=== PATIENT | female | born 1995 | race Caucasian/White ===

== ENCOUNTER 2021-09-14 10:00 | Emergency (ER) | payer MEDICAID, SELFPAY ==
[2021-09-14 11:19] LABS: UTC Strep Screen (Rapid) Negative (Negative)
[2021-09-14 11:24] VITALS: BP 125/83; PULSE 76; RESP 18; TEMP 36.6; O2SAT 100; BMI 17.2
--- NOTE | 2021-09-14 11:30 | HMH.EDUTC ---
[facility] [place] Clinical Impression: Acute viral syndrome Disposition: Left Against Medical Advice Condition on Discharge: Good Referrals: Provider,Referral, [Primary Care Provider] - Time of Disposition: 12:32 Medical Decision Making - Medical Records Medical records reviewed: No: I reviewed the patient's medical records. - Dario Inquiry Pt receiving controlled substance: No Vital Signs: 09/14/21 11:24 Temperature 98 F Temperature Source Oral Pulse Rate [Left] 76 Respiratory Rate 18 Blood Pressure [Right Arm] 125/83 Blood Pressure Mean [Right Arm] 97 02 Sat by Pulse Oximetry 100 - Lab Data Lab Results 09/14/21 11:18: Strep Scn Rapid Clinic Negative Orders (Tests/Meds): ORDERS Category Date Time Status Strep Screen Confirmation Stat Micro 09/14/21 11:18 Received Medical Decision Narrative: She left before evaluation and treatment could be completed. [facility] [place] - General Stated complaint: cough, sore throat, chest congestion Time Seen by Provider: 09/14/21 11:30 Mode of Arrival: Ambulatory Source of Information: Patient Limitations: No Limitations Description of Symptoms (Recalled from Triage Doc. by RN): pt c/o SOA, cough, chest tightness, and a sore throat x2 days. HEENT Symptoms (Recalled from RN notes): Yes Resp Symptoms (Recalled from RN notes): Yes Skin Symptoms (Recalled from RN notes): No MS Symptoms (Recalled from RN notes): No Functional Status (Recalled from RN notes): wnl - History of Present Illness Provider Complaint: She c/o cough, chest congestion, body aches and feeling very bad since yesterday. She denies shortness of breath. - Related Data Allergies Allergy/AdvReac Type Severity Reaction Status Date / Time BANANAS Allergy Intermediate ITCHING, Uncoded 07/07/17 15:00 SORES AROUND MOUTH - Worker's Comp Is this a Worker's Comp case?: No [facility] History - Hepatitis A Screen Drug use history?: No High risk sexual behaviors?: No History of sexually transmitted infection?: No Currently employed?: No Childcare worker?: No Do you have indoor plumbing?: Yes Do you have electricity?: Yes Attestation statement:: This patient has been screened for Hepatitis A risk factors. I have reviewed the patient's past medical history: Yes ROS Obtained: Yes All systems reviewed & no additional complaints - Constitutional Constitutional: Reports as per HPI - Eyes Eyes: Denies eye discharge - ENT Ears, Nose, Mouth, and Throat: Reports as per HPI - Cardiovascular Cardiovascular: Denies chest pain - Respiratory Respiratory: Reports chest congestion, Reports cough, Denies dyspnea, Denies stridor, Denies wheezing Physical Exam - General General appearance: alert, in no apparent distress - Head Head exam: atraumatic, normocephalic, normal inspection - Eye Eye exam: Present: normal appearance, PERRL, EOMI - ENT ENT exam: Present: normal exam, normal oropharynx, mucous membranes moist, TM's normal bilaterally, normal external ear exam - Neck Neck exam: Present: normal inspection, full ROM, trachea midline. Absent: meningismus, lymphadenopathy - Chest Chest inspection: Present: normal inspection, symmetric chest wall rise. Absent: tenderness - Respiratory Respiratory exam: Present: normal lung sounds bilaterally. Absent: respiratory distress - Cardiovascular Cardiovascular exam: Present: regular rate, normal rhythm. Absent: JVD - Abdominal Exam Abdominal exam: Present: soft, normal bowel sounds. Absent: distention, tenderness, guarding - Extremities Exam Extremities exam: Present: normal inspection, full ROM, normal capillary refill. Absent: calf tenderness - Back Exam Back exam: Present: normal inspection. Absent: tenderness - Neurological Exam Neurological exam: Present: alert, oriented X3 - Psychiatric Psychiatric exam: Present: normal affect, normal mood - Skin Skin exam: Present: warm, dry, intac
--- NOTE | 2021-09-14 11:32 | XR_ITS ---
PROCEDURE INFORMATION: Exam: XR Chest Exam date and time: 09/14/2021 11:32 AM Age: 26 years old Clinical indication: Shortness of breath; Additional info: SOA TECHNIQUE: Imaging protocol: XR of the chest. Views: 2 views. COMPARISON: No relevant prior studies available. FINDINGS: Lungs: No focal airspace disease. Pleural spaces: Unremarkable. No pleural effusion. No pneumothorax. Heart/Mediastinum: Cardiomediastinal silhouette is within normal limits. Bones/joints: Unremarkable. IMPRESSION: No acute cardiopulmonary abnormality.
[2021-09-14 12:34] VITALS: BP 125/83; PULSE 76; RESP 18; TEMP 36.6
== END 2021-09-14 12:35 | disposition left against medical advice (07) ==
PROVIDERS: Emergency Provider Nurse Practitioner Family
DX: Z53.21 Procedure and treatment not carried out due to patient leaving prior to being seen by health care provider (principal); B34.9 Viral infection, unspecified; R05.1 Acute cough
CPT/HCPCS: 71046; 87880

== ENCOUNTER 2022-02-19 19:44 | Emergency (ER) | payer MEDICAID, SELFPAY ==
[2022-02-19 20:08] LABS: UTC Strep Screen (Rapid) Negative (Negative)
[2022-02-19 20:12] VITALS: BP 119/75; PULSE 99; RESP 16; TEMP 36.7; O2SAT 100; BMI 17.2
--- NOTE | 2022-02-19 20:15 | HMH.EDUTC ---
[facility] [place] Impression: Viral syndrome Acute bronchitis Qualifiers: Bronchitis organism: unspecified organism Qualified Code(s): J20.9 - Acute bronchitis, unspecified Disposition: Home, Self-Care Condition on Discharge: Good Instructions: Acute Bronchitis, DI for Acute Bronchitis, DI for COVID-19 (Suspected or Confirmed ), Preventing the Spread of Coronavirus Discharge Instructions Additional Instructions: Drink plenty of fluids. Take tylenol or ibuprofen for pain or fever. Take the medications as directed. Follow up with your regular doctor. GO TO THE ER FOR ANY WORSENING SYMPTOMS Quarantine until you know the results of your covid-19 test. Notify your school or workplace of your results and follow their instructions regarding return to work/school. Prescriptions: Ondansetron [Zofran 4mg ODT] 4 mg PO Q8HP PRN #20 tab PRN Reason: Nausea Transmission Status: Received by [facility] #[id number] Benzonatate [Benzonatate 100mg cap] 100 mg PO TIDP PRN #30 cap PRN Reason: Cough Transmission Status: Received by [employer] #[id number] methylPREDNISolone [Medrol] 4 mg PO DIRECTED 6 Days #21 packet Transmission Status: Received by [employer] #[id number] Azithromycin [Z-Inocente 250mg Tab*] 250 mg PO UD DOSE PK #6 tab Transmission Status: Received by [employer] #[id number] Referrals: Provider,Referral, [Primary Care Provider] - Forms: Work/School Release Time of Disposition: 20:26 Medical Decision Making - Medical Records Medical records reviewed: No: I reviewed the patient's medical records. - Dario Inquiry Pt receiving controlled substance: No Vital Signs: 02/19/22 20:12 02/19/22 20:27 Temperature 98.0 F 98.0 F Temperature Source Oral Pulse Rate 99 H Pulse Rate [Left] 99 H Respiratory Rate 16 16 Blood Pressure 119/75 Blood Pressure [Right Arm] 119/75 Blood Pressure Mean [Right Arm] 89 02 Sat by Pulse Oximetry 100 - Lab Data Lab Results 02/19/22 19:57: Chlamy pneumoniae PCR Not detected, Adenovirus (PCR) Not detected, B. pertussis DNA (PCR) Not detected, Coronavirus OC43 (PCR) Not detected, Coronavirus HKU1 (PCR) Not detected, Coronavirus 229E (PCR) Not detected, SARS-CoV-2 (PCR) Not detected, Coronavirus NL63 (PCR) Not detected, Human Metapneumovir PCR Not detected, Influenza A (H1) PCR Not detected, Influ A (H1N1/09) PCR Not detected, Influenza A (H3) PCR Not detected, Influenza Type A (PCR) Not detected, Influenza Type B (PCR) Not detected, M. pneumoniae (PCR) Not detected, Parainfluenza 1 (PCR) Not detected, Parainfluenza 2 (PCR) Not detected, Parainfluenza 3 (PCR) Not detected, Parainfluenza 4 (PCR) Not detected, RSV (PCR) Not detected, Entero/Rhino (PCR) Detected A 02/19/22 20:06: Strep Scn Rapid Clinic Negative Orders (Tests/Meds): ORDERS Category Date Time Status Strep Screen Confirmation Stat Micro 02/19/22 20:06 [place]ceived [facility] [place] - General Stated complaint: COVID TEST, sore throat, body aches Time Seen by Provider: 02/19/22 20:15 Mode of Arrival: Ambulatory Source of Information: Patient Limitations: No Limitations Description of Symptoms (Recalled from Triage Doc. by RN): patient comes in for sore throat, chest tightness, cough. symptoms began this am. HEENT Symptoms (Recalled from RN notes): Yes Resp Symptoms (Recalled from RN notes): Yes Skin Symptoms (Recalled from RN notes): No MS Symptoms (Recalled from RN notes): No Functional Status (Recalled from RN notes): n/a - History of Present Illness Provider Complaint: She states that she has had chest congestion, sore throat, chills and malaise since this morning. - Related Data Previous Rx's Medication Instructions Recorded Azithromycin [Z-Inocente 250mg Tab*] 250 mg PO UD DOSE PK #6 tab 02/19/22 Benzonatate [Benzonatate 100mg 100 mg PO TIDP PRN #30 cap 02/19/22 cap] Ondansetron [Zofran 4mg ODT] 4 mg PO Q8HP PRN #20 tab 02/19/22 met
[2022-02-19 20:27] VITALS: BP 119/75; PULSE 99; RESP 16; TEMP 36.7
[2022-02-19 20:30] LABS: Adenovirus,PCR Not Detected (NotDetected); Bordetella Pertussis Not Detected (NotDetected); Chlamydophila Pneumoniae, PCR Not Detected (NotDetected); Coronavirus 19, PCR Not Detected (NotDetected); Coronavirus 229E Not Detected (NotDetected); Coronavirus NL63 Not Detected (NotDetected); Coronavirus OC43 Not Detected (NotDetected); Coronovirus HKU1,PCR Not Detected (NotDetected); Human Metapneumovirus Not Detected (NotDetected); Influenza A, PCR Not Detected (NotDetected); Influenza AH1, 2009 Not Detected (NotDetected); Influenza AH1, PCR Not Detected (NotDetected); Influenza AH3,PCR Not Detected (NotDetected); Influenza B, PCR Not Detected (NotDetected); Mycoplasma Pneumoniae, PCR Not Detected (NotDetected); Parainfluenza 1, PCR Not Detected (NotDetected); Parainfluenza 2, PCR Not Detected (NotDetected); Parainfluenza 3, PCR Not Detected (NotDetected); Parainfluenza 4, PCR Not Detected (NotDetected); Respiratory Syncytial Virus Not Detected (NotDetected)
[2022-02-19 21:58] LABS: Rhinovirus/Enterovirus Detected (NotDetected)
== END 2022-02-19 20:32 | disposition home or self-care (01) ==
PROVIDERS: Emergency Provider Nurse Practitioner Family
DX: B34.9 Viral infection, unspecified (principal); J20.9 Acute bronchitis, unspecified
CPT/HCPCS: 87581; 87632; 87798; 87880; 99212; C9803; G0463; U0003; U0005

== ENCOUNTER → 2022-06-30 13:30 | Outpatient (CLI) | payer MEDICAID, SELFPAY ==
--- NOTE | 2022-06-30 13:34 | US_ITS ---
FINAL REPORT CLINICAL HISTORY: pt. has history of dermoid cyst FINDINGS: Transvaginal sonographic images of the pelvis were obtained. The uterus measures 7 x 4 x 5 cm. There is an IUD in the uterus. The endometrium measures 5 mm, which is within normal limits. No uterine mass is identified. The right ovary measures 4.4 cm in length . Multiple follicles are present. The left ovary is surgically absent. There is a small amount of pelvic free fluid which may be physiologic or reactive. IMPRESSION: Multiple follicles the right ovary. Left ovary surgically absent. Small amount of pelvic free fluid which may be physiologic or reactive. Reviewed, Interpreted and Dictated by Collin Art III, MD Transcribed by Lidya Dixon Authenticated and [facility]
== END ==
PROVIDERS: PCP Emergency Medicine; Visit Provider Obstetrics & Gynecology
DX: R10.2 Pelvic and perineal pain (principal); R10.31 Right lower quadrant pain
CPT/HCPCS: 76830

== ENCOUNTER → 2022-08-16 14:37 | Outpatient (CLI) | payer MEDICAID, SELFPAY ==
[2022-08-16 15:23] LABS: Basophils # 0.1 K/mm3 (0-0.2); Basophils % 0.8 % (0.1-2.0); Eosinophils # 0.1 K/mm3 (0.0-0.4); Eosinophils % 0.5 % (0.1-12.0); Hematocrit 45.2 % (37.0-47.0); Hemoglobin 14.7 g/dL (12.2-16.2); Lymphocytes # 1.2 K/mm3 (0.7-4.5); Lymphocytes % 10.5 % (10-50); Mean Corpuscular HGB Conc 32.6 g/dL (31.8-35.4); Mean Corpuscular Hemoglobin 30.4 pg (27.0-31.2); Mean Corpuscular Volume 93.2 fl (81-99); Monocytes # 0.2 K/mm3 (0.1-1.0); Monocytes % 1.9 % (1.7-9.3); Neutrophils # 9.4 K/mm3 (1.8-7.8); Neutrophils % 86.2 % (37.0-80.0); Platelet Count 232 K/mm3 (142-424); Red Blood Count 4.85 M/mm3 (4.20-5.40); Red Cell Distribution Width 12.9 % (11.5-17.5); White Blood Count 10.9 K/mm3 (4.8-10.8)
[2022-08-16 15:25] LABS: MANUAL DIFFERENTIAL MANUAL DIFFERENTIAL (MANUAL DIFF)
[2022-08-16 15:29] LABS: Chloride 105 mmol/L (98-107); Sodium 143 mmol/L (136-145)
[2022-08-16 15:31] LABS: Alanine Aminotransferase 17 U/L (12-78); Aspartate Amino Transferase 24 U/L (14-36); Blood Urea Nitrogen 13 mg/dl (7-17); Estimated Glomerular Filt Rate 67 ml/min (>60); GFR (African American) 80 ML/MIN (>60)
[2022-08-16 15:32] LABS: Albumin Level 4.6 g/dl (3.5-5.0); Albumin/Globulin Ratio 1.6 (1.1-1.8); Alkaline Phosphatase 64 U/L (38-126); Bilirubin,Total 0.4 mg/dl (0.2-1.3); Calcium 8.7 mg/dl (8.4-10.2); Carbon Dioxide 30 mmol/L (22.0-30.0); Globulin 2.9 g/dL (1.3-3.2); Glucose 77 mg/dl (74-100); Total Protein,Serum 7.5 g/dl (6.3-8.2)
[2022-08-16 15:56] LABS: HCG,Quantitative < 2 mIU/ml (0-5.42)
[2022-08-16 17:05] LABS: Lymphocytes % 12 % (10-50); Neutrophils % 88 % (42-76); Total Cells Counted 100
[2022-08-16 17:06] LABS: Platelet Estimate Normal; RBC Morphology Normal
== END ==
PROVIDERS: PCP Emergency Medicine; Visit Provider Obstetrics & Gynecology
DX: Z01.812 Encounter for preprocedural laboratory examination (principal); R10.2 Pelvic and perineal pain
CPT/HCPCS: 36415; 80053; 84702; 85007; 85025

== ENCOUNTER 2022-08-18 07:10 | Day surgery (SDC) | payer MEDICAID, SELFPAY ==
[2022-08-14 12:50] VITALS: BMI 18.6
[2022-08-18] VITALS (14 sets, daily range): BP systolic 102–128; BP diastolic 59–80; PULSE 52–89; RESP 16–18; TEMP 36.6–43; O2SAT 96–100
--- NOTE | 2022-08-18 08:05 | P.PN_ITS ---
[facility] Disclaimer: The information contained in this section may have been updated after the patient was seen, as this information can be updated by other users. Medical History FANNIE III (cervical intraepithelial neoplasia III) History of anxiety History of depression History of irritable bowel syndrome Loss of teeth due to extraction Pelvic pain in female Presence of 52 mg levonorgestrel-releasing intrauterine device (IUD) Surgical History H/O myringotomy H/O oophorectomy Hx of section Hx of laparoscopy Family History Grandmother Cancer Breast Cancer Social History (Updated 08/18/22 @ 07:27 by Sunshine Constantino RN) Smoking Status: Current every day smoker tobacco type: cigarettes packs per day: 1 years smoked: 11 alcohol intake: never substance use type: marijuana current occupational status: unemployed Travel in the last 8 weeks: None [facility] Anesthesia Checklist Patient Identification Patient Identification: Verbal (Name & ) Structural Data Admitted From: Home Planned Operative Procedure/s: dx lap , d/c hyst, novasure Consent for Planned Operative Procedure(s) Verified: Yes NPO Status Verified Time NPO: 00:00 Additional verifications Anesthesia Reactions: No Hx Blood Transfusions: No Blood Transfusion Reaction: No Airway Assessment C-Spine Mobility Assessed: Yes TMJ Mobility Assessed: Yes Dentition: Dentures-good fit Neurological Assessment Level of Consciousness: Awake, Alert and Appropriate Anesthesia Plan Anesthesia Risk discussed: Yes Anesthesia Plan: Verified ASA Class: II Anesthesia Type: General
--- NOTE | 2022-08-18 11:23 | P.PNANES_ITS ---
[facility] Anesthesia Record Part I Anesthesia Record I Intake, IV Amount: 1,300 Estimated blood loss (mL): 25 Urine output (mL): 200 Blood Products used (#): none Blood Pressure: 126/59 SaO2: 97 Pulse Rate: 79 Respiratory Rate: 16 Temperature: 98 F Patient is:: Drowsy and Stable Stable to PACU at:: 11:20
--- NOTE | 2022-08-18 11:48 | EXP.OP.NOTE ---
Date of procedure: 08/21/22 Pre-op Diagnosis:: 1. Pelvic pain 2. Heavy menstrual bleeding 3. Dysfunctional uterine bleeding 4. Right ovarian cyst 5. Previous LSO 6. FANNIE 3 Post-op Diagnosis:: Same Procedure performed:: 1. Diagnostic laparoscopy, right salpingectomy 2. D&C Hysteroscopy, Novasure endometrial ablation 3. 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 She was prepped/draped in lithotomy position. A uterine manipulator was placed without difficulty. Gloves were changed and attention was turned to the abdomen. A 5mm skin incision was made in the umbilical fold and the Verees needle was inserted through the peritoneum and into the abdominal cavity in standard fashion. The abdomen was insufflated with CO2 gas. A 5mm non-bladed trocar was inserted directly into the abdominal cavity and appropriate placement was confirmed with the laparoscope. No intra-abdominal injuries occurred during entry into the abdominal cavity, as confirmed visually with the laparoscope. The patient was placed in trendelenburg and an 11mm skin incision was made 2cm above the pubic symphysis. An 11mm non-bladed trocar was inserted under direct visualization, without complication. A 5mm skin incision was made in the LLQ and a 5mm non-bladed trocar was inserted under direct visualization. The uterus was elevated out of the pelvis in order to better visualize the anatomy. A survey of the pelvis and abdomen revealed the findings noted above. The uterus was angled towards the patient left, and the right fallopian tube was grasped and excised using the harmonic scalpel. Once the tube was completely excised, it was removed through the 11mm trocar. The pedicle was hemostatic. The uterine manipulator was removed. The abdomen was then evacuated of gas and all trocars removed. The skin incisions were closed with 4-0 monocryl and Dermabond. Attention was then turned to the vagina and the cervix was dilated until hysteroscope could be accomodated. The hysteroscope was introduced through the cervix into the uterus and the cavity surveyed. The cavity appeared normal and no polyps or fibroids were observed within the cavity. The hysteroscope was removed and sharp curettage was peformed. The Novasure device was introduced into the uterus. The cavity length was measured at 4.5cm and width at 3.0cm, and the cavity assessment was successful. The Novasure was deployed and the endometrial ablation was completed in 71 seconds, and without complication. All instruments were removed from her vagina, and the coated speculum was placed in the vagina for the LEEP. A C-LETZ loop electrode with a depth of 11mm was used for the leep using a 50/50 blend setting; the cervical cone specimen was excised in a single piece. Sharp endocervical curettage was performed and sent as a seperate specimen. The remaining ectocervix surface was cauterized using a bovie ball as treatment for any residual dysplasia. The endocervical margins were cauterized using the bovie ball for hemostasis, with care taken to avoid cautery to the endocervical canal. The endocervical curette was placed in the canal to ensure patency. Monsel's solution was placed over the surgical site for additional hemostasis. Once hemostasis was achieved, all instruments were removed from the vagina. All counts were correct. The patient was taken out of lithotomy position, awakened from anesthesia and taken to the PACU in stable condition. EBL: 25cc Condition: stable Disposition: PACU Specimens:: 1. Right fallopian tube 2. Endometrial curettings
--- NOTE | 2022-08-18 12:32 | EXP.ANES.II ---
[facility] Anesthesia Record Part II Anesthesia Record Part II Discharge Time: 12:00 Destination: Surgical Day Care (OP Surgery) PACU nurse assessment reviewed?: Yes Patient Condition:: Good Anesthesia Complications:: None Swallowing reflex intact?: Yes Cyanosis?: No Blood Pressure: 125/72 Pulse Rate: 78 Temperature: 98 F Mental Status: Alert & Oriented Pain level:: 2 Nausea and/or vomitting:: None Intake, IV Amount: 0
== END 2022-08-18 13:22 | disposition home or self-care (01) ==
PROVIDERS: PCP Emergency Medicine; Visit Provider Obstetrics & Gynecology
PROC: (CPT 49320; principal; 2022-08-18 09:15)
DX: N92.0 Excessive and frequent menstruation with regular cycle (principal); N93.9 Abnormal uterine and vaginal bleeding, unspecified; N83.201 Unspecified ovarian cyst, right side; D06.9 Carcinoma in situ of cervix, unspecified
CPT/HCPCS: 57460; 58563; 58661; 96374; J2405; J2710

== ENCOUNTER 2022-08-21 10:19 | Emergency (ER) | payer MEDICAID, SELFPAY ==
[2022-08-21 10:20] VITALS: BP 150/75; PULSE 104; RESP 17; TEMP 36.8; O2SAT 96; BMI 18.6
[2022-08-21 10:24] VITALS: BP 133/94; PULSE 81; O2SAT 100
[2022-08-21 10:30] VITALS: BP 150/75; PULSE 85; O2SAT 97
--- NOTE | 2022-08-21 10:51 | PC.NURSE ---
PT ASSISTED TO BR
[2022-08-21 10:53] VITALS: BMI 18.6
[2022-08-21 11:10] LABS: Microscopic, Urine URINE MICROSCOPIC (MICROSCOPIC)
[2022-08-21 11:14] LABS: Basophils # 0.2 K/mm3 (0-0.2); Eosinophils # 0.4 K/mm3 (0.0-0.4); Eosinophils % 2.9 % (0.1-12.0); Hematocrit 46.5 % (37.0-47.0); Lymphocytes # 1.3 K/mm3 (0.7-4.5); Lymphocytes % 8.6 % (10-50); Mean Corpuscular HGB Conc 32.3 g/dL (31.8-35.4); Mean Corpuscular Hemoglobin 30.1 pg (27.0-31.2); Mean Platelet Volume 8.5 fl (7.4-10.4); Monocytes # 0.5 K/mm3 (0.1-1.0); Monocytes % 3.2 % (1.7-9.3); Neutrophils # 12.9 K/mm3 (1.8-7.8); Neutrophils % 84.3 % (37.0-80.0); Platelet Count 277 K/mm3 (142-424); Red Cell Distribution Width 12.9 % (11.5-17.5); White Blood Count 15.3 K/mm3 (4.8-10.8)
[2022-08-21 11:18] LABS: Chloride 103 mmol/L (98-107); Potassium 4.1 mmoL/L (3.5-5.1); Sodium 139 mmol/L (136-145)
[2022-08-21 11:19] LABS: Appearance,Urine CLEAR (Clear); Bilirubin,Urine Negative (Negative); Blood, Urine 1+ (Negative); Color,Urine YELLOW (Yellow); Glucose,Urine (UA) Negative (Negative); Ketones,Urine Negative (Negative); Leukocyte Esterase,Urine Negative (Negative); Nitrate,Urine Negative (Negative); Protein,Urine Negative (Negative)
[2022-08-21 11:20] LABS: Alanine Aminotransferase 19 U/L (12-78); Alkaline Phosphatase 68 U/L (38-126); Aspartate Amino Transferase 28 U/L (14-36); Blood Urea Nitrogen 10 mg/dl (7-17); Creatinine Clearance Estimated 77 mL/min (50-200); Estimated Glomerular Filt Rate 86 ml/min (>60); GFR (African American) 104 ML/MIN (>60); MANUAL DIFFERENTIAL MANUAL DIFFERENTIAL (MANUAL DIFF)
[2022-08-21 11:21] LABS: Albumin Level 4.6 g/dl (3.5-5.0); Albumin/Globulin Ratio 1.6 (1.1-1.8); Anion Gap 9.1 mEq/L (5-15); Carbon Dioxide 31 mmol/L (22.0-30.0); Globulin 2.8 g/dL (1.3-3.2); Glucose 102 mg/dl (74-100); Total Protein,Serum 7.4 g/dl (6.3-8.2)
[2022-08-21 11:38] LABS: Bacteria,Urine Trace /lpf
--- NOTE | 2022-08-21 11:41 | CT_ITS ---
FINAL REPORT CLINICAL HISTORY: R flank pain FINDINGS: CT ABDOMEN & PELVIS W/O CONTRAST Axial CT images of the abdomen and pelvis were obtained without intravenous contrast. Coronal reformatted images were also obtained.This study was performed with techniques to keep radiation doses as low as reasonably achievable (ALARA). Individualized dose reduction techniques using automated exposure control or adjustment of mA and/or kV according to the patient's size were employed. Abdomen: The lung bases are clear. There is several small nonobstructing bilateral renal stones. There is no hydronephrosis. The gallbladder is present. The liver, spleen and pancreas have an unremarkable, unenhanced appearance. No mass or adenopathy is seen. No inflammatory process is identified. Pelvis: The appendix is not well visualized. There is no evidence of ureteral dilation or ureteral stone. There is air within the uterus which is likely postoperative. There is a probable small right ovarian cyst. There is a small amount of pelvic free fluid which is reactive or physiologic. There is mild bladder wall thickening. There is stranding in the pelvis which may represent postoperative/inflammatory change. IMPRESSION: Several small nonobstructing bilateral renal stones. No hydronephrosis. Air within the uterus, likely postoperative. Probable small right ovarian cyst. Small amount of pelvic free fluid, likely reactive or physiologic. Stranding in the pelvis may represent postoperative/inflammatory change. Reviewed, Interpreted and Dictated by Collin Art III, MD Transcribed by Opal Zuluaga Authenticated and . [facility]
--- NOTE | 2022-08-21 11:50 | PC.NURSE ---
[address]
--- NOTE | 2022-08-21 11:57 | HMH.EDGENADL ---
Discharge Plan Disposition Patient Disposition: Home, Self-Care Condition: Good Prescriptions Prescriptions: New ondansetron 4 mg tablet,disintegrating 4 mg PO Q8H PRN (Reason: nausea and vomiting) Qty: 10 0RF No Action prednisone 20 mg tablet 20 mg PO DAILY ondansetron 4 mg tablet,disintegrating 4 mg PO Q8H PRN (Reason: nausea and vomiting) Qty: 20 0RF oxycodone 5 mg tablet 5 mg PO Q6H PRN (Reason: pain) Qty: 20 0RF Referrals Follow up/Referrals: Al Villanueva MD [Primary Care Provider] - See instructions Activity Restrictions/Add. Instructions Additional Instructions/Restrictions: Continue Zofran as needed for nausea and vomiting. See Dr. Lucero in the office is scheduled. Have blood drawn in the lab at [facility] on the day of your appointment, before you see Dr. Lucero in the office. Return to the emergency department if symptoms worsen. Clinical Impressions Clinical Impression: Vomiting, Abdominal pain, Right flank pain, Leukocytosis Instructions Patient Instructions: DI for Diarrhea and Traveler's Diarrhea -- Adult, DI for Diarrhea and Traveler's Diarrhea -- Child, DI for Nausea -- Adult, DI for Nausea -- Child Discharge ED Provider: Óscar Traylor General Adult HPI General Chief complaint: Nausea/Vomiting/Diarrhea Stated complaint: Post op 08/18 Vomitting Time Seen by Provider: 08/21/22 11:34 Mode of Arrival: Ambulatory Limitations: No Limitations Description of Symptoms (Recalled from ER Triage Doc. by RN): PT WITH N/V THAT STARTED LAST NIGHT. PT HAD LAP FRONT DESK COORDINATOR SURGERY ON 08/18/2022. REPORTS PAIN AT LAP SITES AND RIGHT SIDE LOW BACK PAIN. HAS NOT TAKEN ANY PAIN MEDICATION THIS AM History of Present Illness HPI narrative: Patient complains of nausea and vomiting, abdominal pain, right flank pain. States that she had multiple surgeries by Dr. Lucero on 08/18/2022. She was doing well until last night when the noted symptoms started. She says that she was taking oxycodone 5 mg for pain but thought that might be causing the nausea and vomiting and therefore has not taken any since last night, pain is worsening. No fever. No urinary symptoms. Her abdominal pain is at her incision sites. She called Dr. Lucero's office today and was advised to come to the emergency department. Related Data Home Medications Medication Instructions Recorded Confirmed prednisone 20 mg tablet 20 mg PO DAILY . 08/14/22 08/18/22 Previous Rx's Medication Instructions Recorded ondansetron 4 mg disintegrating 4 mg PO Q8H PRN nausea and 08/18/22 tablet vomiting #20 tabs oxycodone 5 mg tablet 5 mg PO Q6H PRN pain #20 tabs 08/18/22 ondansetron 4 mg disintegrating 4 mg PO Q8H PRN nausea and 08/21/22 tablet vomiting #10 tabs Allergies Allergy/AdvReac Type Severity Reaction Status Date / Time banana Allergy Verified 08/18/22 07:21 hydromorphone [From Dilaudid] Allergy Agitated Verified 08/18/22 07:21 BANANAS Allergy Intermediate ITCHING, Uncoded 08/14/22 11:24 SORES AROUND MOUTH PFSH PFSH Disclaimer: The information contained in this section may have been updated after the patient was seen, as this information can be updated by other users. Medical History AFNNIE III (cervical intraepithelial neoplasia III) History of anxiety History of depression History of irritable bowel syndrome Loss of teeth due to extraction Pelvic pain in female Presence of 52 mg levonorgestrel-releasing intrauterine device (IUD) Surgical History (Updated 08/18/22 @ 09:29 by Azra Lucero MD) H/O myringotomy H/O oophorectomy Hx of section Hx of laparoscopy Family History Grandmother Cancer Breast Cancer Social History (Updated 08/18/22 @ 07:27 by Sunshine Constantino RN) Smoking Status: Current every day smoker tobacco type: cigarettes packs per day: 1 years smoked: 11 alcohol intake: never substance use type: mariju
[2022-08-21 11:58] VITALS: BP 142/82; PULSE 82; O2SAT 100
[2022-08-21 11:58] LABS: Eosinophils % 4 % (0-3); Lymphocytes % 14 % (10-50); Monocytes % 6 % (2-9); Neutrophils % 76 % (42-76); Platelet Estimate Normal; RBC Morphology Normal; Total Cells Counted 100
[2022-08-21 11:59] LABS: Lipase 46 U/L (23-300)
[2022-08-21 12:00] VITALS: BP 143/90; PULSE 87; O2SAT 98
--- NOTE | 2022-08-21 12:05 | PC.NURSE ---
PT MEDICATED PER EMAR, ASSISTED TO TO BED AND WARM BLANKET PROVIDED. NO FURTHER NEEDS AT THIS TIME
--- NOTE | 2022-08-21 12:43 | PC.NURSE ---
ROUNDED ON PT AT THIS TIME, PT REPORTS FEELING MUCH BETTER. AT BEDSIDE. NO NEEDS VOICED
--- NOTE | 2022-08-21 13:46 | PC.NURSE ---
DR. SWEENEY SPEAKING WITH DR. NORMAN
--- NOTE | 2022-08-21 13:55 | PC.NURSE ---
DR SWEENEY AT BEDSIDE TO UPDATE PT AND FAMILY
[2022-08-21 14:05] VITALS: BP 124/75; PULSE 94; RESP 17; TEMP 36.7; O2SAT 98
== END 2022-08-21 14:05 | disposition home or self-care (01) ==
PROVIDERS: Emergency Provider Emergency Medicine; PCP Emergency Medicine
DX: R11.2 Nausea with vomiting, unspecified (principal); R10.9 Unspecified abdominal pain; M54.50 Low back pain, unspecified; D72.829 Elevated white blood cell count, unspecified; F41.9 Anxiety disorder, unspecified; K58.9 Irritable bowel syndrome, unspecified; F17.210 Nicotine dependence, cigarettes, uncomplicated; Z80.3 Family history of malignant neoplasm of breast
CPT/HCPCS: 74176; 80053; 81001; 83690; 85007; 85025; 96374; 96375; 99285; J2405

== ENCOUNTER 2022-08-25 12:17 | Inpatient (IN) | payer MEDICAID, SELFPAY ==
[2022-08-25 12:34] VITALS: BP 113/72; PULSE 80; RESP 17; TEMP 36.8; O2SAT 98; BMI 17.9
--- NOTE | 2022-08-25 12:36 | CT_ITS ---
FINAL REPORT TECHNIQUE: Pre-and postcontrast axial CT images of the abdomen and pelvis were obtained. Coronal reformatted images were also obtained and reviewed.This study was performed with techniques to keep radiation doses as low as reasonably achievable (ALARA). Individualized dose reduction techniques using automated exposure control or adjustment of mA and/or kV according to the patient''''s size were employed. CLINICAL HISTORY: leukocytosis and abdominal/back pain postop 08/18/22: LEEP, dx lap, rt salpingectomy, D & C hysteroscopy, ablation COMPARISON: 08/21/2022 FINDINGS: CT OF THE ABDOMEN AND PELVIS WITH AND WITHOUT CONTRAST Abdomen: The lung bases are clear. The heart is normal in size. The liver has an unremarkable appearance, without evidence of mass or biliary ductal dilatation. The spleen is unremarkable. No adrenal mass is present. The pancreas has an unremarkable appearance. The kidneys are normal, without evidence of mass or hydronephrosis. The aorta is normal in caliber. There is no free fluid or adenopathy. No mass or abnormal fluid collection is seen. Pelvis: The appendix is normal. The urinary bladder is unremarkable. No inflammatory process is seen. There is no evidence of mass or adenopathy. There is no evidence of bowel obstruction. Uterus is retroverted. Fluid is seen in the endometrial cavity and in the pelvis which is likely physiologic. There is lumbar scoliosis convex to the left approximately 15 degrees. Precontrast imaging demonstrates small, bilateral nonobstructing renal stones measuring up to 2 mm. IMPRESSION: No evidence of acute intra-abdominal process. Small, bilateral nonobstructing renal stones. Reviewed, Interpreted and Dictated by Vega Gilmore MD Transcribed by Lidya Dixon Authenticated and [facility]
[2022-08-25 13:19] LABS: Basophils # 0.1 K/mm3 (0-0.2); Basophils % 0.3 % (0.1-2.0); Eosinophils # 0.2 K/mm3 (0.0-0.4); Hematocrit 42.3 % (37.0-47.0); Lymphocytes # 1.3 K/mm3 (0.7-4.5); Lymphocytes % 8.1 % (10-50); Mean Corpuscular Hemoglobin 30.4 pg (27.0-31.2); Mean Corpuscular Volume 91.9 fl (81-99); Mean Platelet Volume 8.7 fl (7.4-10.4); Monocytes # 0.4 K/mm3 (0.1-1.0); Monocytes % 2.8 % (1.7-9.3); Neutrophils # 13.7 K/mm3 (1.8-7.8); Neutrophils % 87.8 % (37.0-80.0); Platelet Count 276 K/mm3 (142-424); White Blood Count 15.6 K/mm3 (4.8-10.8)
[2022-08-25 13:20] LABS: MANUAL DIFFERENTIAL MANUAL DIFFERENTIAL (MANUAL DIFF)
[2022-08-25 13:21] VITALS: PULSE 80; O2SAT 98
[2022-08-25 13:35] LABS: Alanine Aminotransferase 16 U/L (12-78); Albumin Level 4.8 g/dl (3.5-5.0); Albumin/Globulin Ratio 1.7 (1.1-1.8); Alkaline Phosphatase 71 U/L (38-126); Anion Gap 9.7 mEq/L (5-15); Aspartate Amino Transferase 26 U/L (14-36); Bilirubin,Total 0.5 mg/dl (0.2-1.3); Blood Urea Nitrogen 11 mg/dl (7-17); Calcium 8.9 mg/dl (8.4-10.2); Carbon Dioxide 31 mmol/L (22.0-30.0); Chloride 105 mmol/L (98-107); Creatinine Clearance Estimated 85 mL/min (50-200); Estimated Glomerular Filt Rate 100 ml/min (>60); GFR (African American) 121 ML/MIN (>60); Globulin 2.8 g/dL (1.3-3.2); Glucose 100 mg/dl (74-100); Potassium 3.7 mmoL/L (3.5-5.1); Sodium 142 mmol/L (136-145); Total Protein,Serum 7.6 g/dl (6.3-8.2)
--- NOTE | 2022-08-25 14:01 | EXP.HP ---
History of Present Illness *Admission Date: 08/25/22 *Reason for visit:: leukocytosis, abdominal pain, flank pain *History of present illness: 27 yo Seen in office today with complaint of back pain, abdominal pain after surgery She is 1 week postop from multiple procedures: 1. Diagnostic laparoscopy, right salpingectomy for purpose of sterilization (previous LSO for dermoid cyst) 2. D&C Hysteroscopy, Novasure endometrial ablation for diagnosis of menorrhagia 3. LEEP for diagnosis of FANNIE 3 She reports that she had nausea and vomiting immediately after surgery last Thursday and thought this might be a side effect of postop pain medication so she stopped taking it She presented to [facility] ED on POD 3 with complaint of right flank pain, nausea, vomiting CT showed bilateral renal stones that were not obstructive and no hydronephrosis Postoperative air was noted in the uterus, small right ovarian cyst and small free fluid in pelvis Stranding noted in pelvis with comment that this might represent postop/inflammatory change WBC was 15.3 without definitive source, but other labs were normal She was discharged home with plan to f/u in office here today and I asked to repeat the cbc today as well She reports that back pain has become severe, and she cannot even stand up straight to walk She did not have labs before office appt because of pain with ambulation She is no longer having nausea/vomiting and reports that she has been eating without difficulty and that BM have been normal She is having vaginal drainage that is watery and blood tinged, but no purulent discharge or heavy vaginal bleeding She has not noted fever at home but temp in office today is 99.3 She is also tachycardic with pulse 117 She appears visibly uncomfortable, particularly with ambulation [facility] Disclaimer: The information contained in this section may have been updated after the patient was seen, as this information can be updated by other users. Medical History FANNIE III (cervical intraepithelial neoplasia III) History of anxiety History of depression History of irritable bowel syndrome Loss of teeth due to extraction Pelvic pain in female Presence of 52 mg levonorgestrel-releasing intrauterine device (IUD) Surgical History (Updated 08/25/22 @ 14:52 by Azra Lucero MD) H/O dilation and curettage H/O myringotomy H/O oophorectomy History of endometrial ablation History of hysteroscopy History of loop electrosurgical excision procedure (LEEP) of cervix History of salpingectomy Hx of section Hx of laparoscopy Family History Grandmother Cancer Breast Cancer Social History Smoking Status: Current every day smoker tobacco type: cigarettes packs per day: 1 years smoked: 11 alcohol intake: never substance use type: marijuana current occupational status: unemployed Travel in the last 8 weeks: None Review of Systems Constitutional Constitutional: Reports system reviewed and no additional complaints, except as documented *Gastrointestinal Gastrointestinal: Reports abdominal pain, Denies change in stool character, Denies nausea and Denies vomiting *Genitourinary Genitourinary: Reports vaginal discharge and Reports vaginal odor *Musculoskeletal Musculoskeletal: Reports back pain Meds Home Medications and Allergies Home Medications Medication Instructions Recorded Confirmed Type ondansetron 4 mg disintegrating 4 mg PO Q8H PRN nausea and 08/21/22 08/25/22 Rx tablet vomiting #10 tabs polyethylene glycol 3350 17 17 g PO DAILY constipation 08/25/22 08/25/22 History gram/dose oral powder (Miralax) New Prescriptions to Start Prescriptions: Allergies Allergy/AdvReac Type Severity Reaction Status Date / Time banana Allergy Unknown ITCHING, Verified 08/25/22 12:39 SORES AROUND MOUTH hydromorphone [From Heather
[2022-08-25 14:03] LABS: Eosinophils % 1 % (0-3); Lymphocytes % 14 % (10-50); Monocytes % 4 % (2-9); Neutrophils % 81 % (42-76); Total Cells Counted 100
[2022-08-25 14:04] LABS: Platelet Estimate Normal; RBC Morphology Normal
[2022-08-25 14:11] LABS: Coronavirus 19, PCR Not Detected (NotDetected); Influenza A, PCR Not Detected (NotDetected); Influenza B, PCR Not Detected (NotDetected)
--- NOTE | 2022-08-25 14:30 | P.CONPHA_ITS ---
Pharmacy Consult Date: 08/25/22 Time: 14:30 Referring provider: RYANNE NORMAN MD Reason for Consult:: GENTAMICIN DOSING AND MANAGEMENT FOR POSSIBLE POST OP INFECTION Allergies Allergy/AdvReac Type Severity Reaction Status Date / Time banana Allergy Unknown ITCHING, Verified 08/25/22 12:39 SORES AROUND MOUTH hydromorphone [From Dilaudid] AdvReac Agitated Verified 08/25/22 12:39 Home Medications Medication Instructions Recorded Confirmed Type ondansetron 4 mg disintegrating 4 mg PO Q8H PRN nausea and 08/21/22 08/25/22 Rx tablet vomiting #10 tabs polyethylene glycol 3350 17 17 g PO DAILY constipation 08/25/22 08/25/22 History gram/dose oral powder (Miralax) New Prescriptions to Start Prescriptions: Height: 1.57 m Weight: 44.452 kg Laboratory Results:: Laboratory Results - last 24 hr 08/25/22 12:57: WBC 15.6 H, RBC 4.60, Hgb 14.0, Hct 42.3, MCV 91.9, MCH 30.4, MCHC 33.0, RDW 13.0, Plt Count 276, MPV 8.7, Neut % (Auto) 87.8 H, Lymph % (Auto) 8.1 L, [place] % (Auto) 2.8, Eos % (Auto) 1.0, Baso % (Auto) 0.3, Neut # (Auto) 13.7 H, Lymph # (Auto) 1.3, [place] # (Auto) 0.4, Eos # (Auto) 0.2, Baso # (Auto) 0.1, Total Counted 100, Neutrophils % (Manual) 81 H, Lymphocytes % (Manual) 14, Monocytes % (Manual) 4, Eosinophils % (Manual) 1, Platelet Estimate Normal, RBC Morphology Normal 08/25/22 12:57: Sodium 142, Potassium 3.7, Chloride 105, Carbon Dioxide 31 H, Anion Gap 9.7, BUN 11, Creatinine 0.70, Estimated Creat Clear 85, Estimated GFR 100, Est GFR ( Amer) 121, Glucose 100, Calcium 8.9, Total Bilirubin 0.5, AST 26, ALT 16, Alkaline Phosphatase 71, Total Protein 7.6, Albumin 4.8, Globulin 2.8, Albumin/Globulin Ratio 1.7 Medical History: Medical History FANNIE III (cervical intraepithelial neoplasia III) History of anxiety History of depression History of irritable bowel syndrome Loss of teeth due to extraction Pelvic pain in female Presence of 52 mg levonorgestrel-releasing intrauterine device (IUD) Assessment and Plan Assessment and plan all Dx Assessment and Plan for all problems:: COPIED FROM OB'S H&P: Leukocytosis, abdominal and flank pain with uncertain etiology/origin for infection. Malodorous vaginal discharge noted and culture collected, but watery drainage with foul odor also common after endometrial ablation, and postop infection very unlikely after endometrial ablation. She will be admitted for sepsis workup, including labs and CT abd/pelvis Patient: Aslhi Ritter? Floor: 208? Age: 27 yo Serum creatinine:? 0.7? mg/dL? Height: 61.8 Inches? Weight (kg): 44 IBW (kg): 49.64? Dosing wt(kg): 44.0? Estimated Creatinine clearance (ml/min): 83.9? CRCL method: Cockcroft and Gault using ibw Drug selected: Gentamicin??? Vd (liters): 13.2?? (factor used: 0.3 L/kg)? Watson (hr-1): 0.381? Half life (hrs):? 1.82 Patient started on ampicillin 2g IV every 6 hours, clindamycin 900mg IV every 8 hours and will start gentamicin? 200mg?IV every 24 hours with an expected Cpeak of 12.6 mcg/ml and an expected Ctrough of 0.00 mcg/ml Thank you for the consult, will continue to follow daily as long as patient receives gentamicin.
[2022-08-25 16:00] VITALS: BP 102/72; PULSE 81; RESP 16; TEMP 37.2; O2SAT 99
--- NOTE | 2022-08-25 17:17 | EXP.MED.CON ---
History of Present Illness *Admission Date: 08/25/22 *Reason for visit:: Sepsis *History of present illness: Thank you Dr. Lucero for the consult on this pleasant patient. This is a 27-year-old female that presents to her tare weigher office for concerns of subjective fever, chills, pelvic pain and back pain over several days with recent ED evaluation on August 21, 2022. Her past medical history is significant for cervical cancer, mood disorder, kidney stones and recent laparoscopic gynecological procedure (08/18/2022). She reports undergoing gynecological surgical procedure on August 18. She reports not feeling well at home so she presented to the ED on August 21, 2022 for evaluation. Her ED concerns included nausea general malaise and pelvic pain. A CT scan of the abdomen and pelvis at that time identified concerns with bladder wall thickening, nonobstructing bilateral kidney stones with no associated hydronephrosis. Her lab evaluation during that ED visit identified a leukocytoses with preserved electrolytes, renal function and hemoglobin. She kept her follow-up appoint with her tare weigher as instructed and reported to her tare weigher subjective fever, chills ongoing pelvic discomfort and her in office vitals identified tachycardia with temperature 99.3. Her tare weigher appropriately diagnosed her with sepsis and admitted the patient for IV fluids and IV antibiotic therapy. Her current labs continue to identify a leukocytoses. We have added inflammatory markers to include procalcitonin and lactic acid. I suspect the etiology of her sepsis will be a urinary source with identified kidney stones and recent pelvic procedure. Her urine culture is currently pending. Her current IV antibiotic therapy is broad-spectrum and her blood cultures are pending. Plans to de-escalate IV antibiotic therapy once further laboratory studies are acquired. [facility] Disclaimer: The information contained in this section may have been updated after the patient was seen, as this information can be updated by other users. Medical History FANNIE III (cervical intraepithelial neoplasia III) History of anxiety History of depression History of irritable bowel syndrome Loss of teeth due to extraction Pelvic pain in female Presence of 52 mg levonorgestrel-releasing intrauterine device (IUD) Surgical History (Updated 08/25/22 @ 14:52 by Azar Lucero MD) H/O dilation and curettage H/O myringotomy H/O oophorectomy History of endometrial ablation History of hysteroscopy History of loop electrosurgical excision procedure (LEEP) of cervix History of salpingectomy Hx of section Hx of laparoscopy Family History Grandmother Cancer Breast Cancer Social History (Updated 08/25/22 @ 14:49 by Sakina Rojo RN) Smoking Status: Current every day smoker tobacco type: cigarettes packs per day: 1 years smoked: 11 alcohol intake: never substance use type: marijuana current occupational status: unemployed Travel in the last 8 weeks: None Review of Systems Review of Systems Review of systems:: pertinent systems reviewed and negative unless documented below Constitutional Constitutional: Reports chills and Reports fever(s) *Cardiovascular Cardiovascular: Reports rapid heart rate Exam Data for Last 24 hours Vital signs and Labs for Last 24 Hours: Temp Pulse Resp BP Pulse Ox 98.9 F 81 16 102/72 L 99 08/25/22 16:00 08/25/22 16:00 08/25/22 16:00 08/25/22 16:00 08/25/22 16:00 Laboratory Results - last 24 hr 08/25/22 12:51: SARS-CoV-2 (PCR) Not detected, Influenza A Untype (PCR) Not detected, Influenza Type B (PCR) Not detected 08/25/22 12:57: WBC 15.6 H, RBC 4.60, Hgb 14.0, Hct 42.3, MCV 91.9, MCH 30.4, MCHC 33.0, RDW 13.0, Plt Count 276, MPV 8.7, Neut % (Auto) 87.8 H, Lymph % (Auto) 8.1 L, [place] % (Auto) 2.8, Eos % (Auto) 1.0, Baso % (Auto) 0.3, Neut # (Auto) 13.7 H,
[2022-08-25 17:22] LABS: C-Reactive Protein 1.1 mg/L (0-4)
[2022-08-25 17:36] LABS: Procalcitonin 0.046 ng/mL (0.0-2.0)
[2022-08-25 18:21] LABS: Lactic Acid 0.8 mmol/L (0.7-2.1)
--- NOTE | 2022-08-25 18:49 | PC.NURSE ---
[address] order [address] Long for pt to receive a total of 1500ml for sepsis bolus. order for 1000ml sent to overnight pharmacy.
[2022-08-25 20:00] VITALS: BP 115/79; PULSE 67; RESP 17; TEMP 36.8; O2SAT 98
[2022-08-25 21:32] LABS: Gentamicin,Random 4.9 ug/ml
[2022-08-25 23:56] VITALS: BP 100/60; PULSE 72; RESP 16; TEMP 36.5; O2SAT 100
[2022-08-26 04:00] VITALS: BP 95/53; PULSE 87; RESP 18; TEMP 36.6; O2SAT 98; BMI 18.8
--- NOTE | 2022-08-26 05:36 | PC.NURSE ---
Pt has c/o pain and nausea 2x t/o shift. PRN medication administered. Family at bedside. Call light within reach.
[2022-08-26 06:36] LABS: Basophils % 0.4 % (0.1-2.0); Eosinophils # 0.2 K/mm3 (0.0-0.4)
[2022-08-26 06:43] LABS: Chloride 111 mmol/L (98-107); Sodium 140 mmol/L (136-145)
[2022-08-26 06:46] LABS: Anion Gap 5.1 mEq/L (5-15); Blood Urea Nitrogen 10 mg/dl (7-17); Calcium 7.9 mg/dl (8.4-10.2); Carbon Dioxide 28 mmol/L (22.0-30.0); Creatinine Clearance Estimated 88 mL/min (50-200); Estimated Glomerular Filt Rate 100 ml/min (>60); GFR (African American) 121 ML/MIN (>60); Glucose 93 mg/dl (74-100); Potassium 4.1 mmoL/L (3.5-5.1)
[2022-08-26 06:54] LABS: Eosinophils % 3.3 % (0.1-12.0); Hematocrit 35.8 % (37.0-47.0); Lymphocytes # 1.3 K/mm3 (0.7-4.5); Lymphocytes % 18.5 % (10-50); Mean Corpuscular HGB Conc 32.8 g/dL (31.8-35.4); Mean Corpuscular Hemoglobin 30.6 pg (27.0-31.2); Mean Corpuscular Volume 93.4 fl (81-99); Mean Platelet Volume 8.5 fl (7.4-10.4); Monocytes # 0.3 K/mm3 (0.1-1.0); Monocytes % 4.8 % (1.7-9.3); Platelet Count 213 K/mm3 (142-424); Red Blood Count 3.83 M/mm3 (4.20-5.40); Red Cell Distribution Width 13.3 % (11.5-17.5); White Blood Count 6.9 K/mm3 (4.8-10.8)
[2022-08-26 06:59] LABS: Hemoglobin 11.7 g/dL (12.2-16.2)
[2022-08-26 08:00] VITALS: BP 116/69; PULSE 104; RESP 18; TEMP 36.6; O2SAT 98
[2022-08-26 08:02] LABS: Gentamicin,Random 0.8 ug/ml
--- NOTE | 2022-08-26 09:15 | EXP.ACUTE.PN ---
Subjective *Date: 08/26/22 *Time: 09:28 Interval history: HD #2 Admitted with sepsis Hospitalist consulted for management with initial uncertainty regarding origin of infection Blood, urine and vaginal cultures still pending but urine gram stain showing >100,000 gram negative rods Vaginal drainage initial gram stain shows many gram negative rods and moderate gram positive cocci, both of which could represent typical santi She is currently being treated with amp, gent and clinda This original coverage was chosen out of concern for potential endometritis, but clinical exam, imaging and lab results thus far more suspicious for pyelonephritis Clinically, she looks much better this morning compared to yesterday She reports that she feels significantly better today than she did the past few days She was tolerating regular food yesterday but has not been given breakfast yet; no nausea, vomiting or diarrhea Back/flank pain is still present but less severe than yesterday Vaginal drainage (post ablation and LEEP) is unchanged Medical Exam Vital signs and Labs for Last 24 Hours: Vital Signs Temp Pulse Resp BP Pulse Ox 08/26/22 08:00 98 F 104 H 18 116/69 98 08/26/22 04:00 97.9 F 87 18 95/53 L 98 08/25/22 23:56 97.7 F 72 16 100/60 L 100 08/25/22 20:00 98.3 F 67 17 115/79 98 08/25/22 16:00 98.9 F 81 16 102/72 L 99 08/25/22 13:21 80 98 08/25/22 12:34 98.2 F 80 17 113/72 98 Intake and Output 08/25/22 08/26/22 08/26/22 19:59 03:59 11:59 Intake Total 120 / 3049 240 / 3049 2689 / 3049 Output Total 0 / 500 500 / 500 Balance 120 / 2549 240 / 2549 2189 / 2549 Intake: Intake, Oral Amount 120 / 360 240 / 360 Intake, Total IV Amount 2689 / 2689 0.9 % Sodium Chloride 1,000 ml 2439 / 2439 @ 125 mls/hr IV .Q8H [facility] Rx#: [id number] Ampicillin Sodium 2 gm In 0.9 % 200 / 200 Sodium Chloride 100 ml @ 200 mls/hr IV Q6H [facility] Rx#:[id number] Clindamycin Phosphate/D5w 900 50 / 50 mg In 50 ml @ 100 mls/hr IV Q8H [facility] Rx#:[id number] Output: Output, Urine Amount 0 / 500 500 / 500 Other: Number of Voids 1 Number of Unmeasured Voids 1 1 Weight 98 lb 102 lb 1 oz Patient Weight 08/26/22 11:59 Weight 102 lb 1 oz Laboratory Results - last 24 hr 08/25/22 12:51: SARS-CoV-2 (PCR) Not detected, Influenza A Untype (PCR) Not detected, Influenza Type B (PCR) Not detected 08/25/22 12:57: WBC 15.6 H, RBC 4.60, Hgb 14.0, Hct 42.3, MCV 91.9, MCH 30.4, MCHC 33.0, RDW 13.0, Plt Count 276, MPV 8.7, Neut % (Auto) 87.8 H, Lymph % (Auto) 8.1 L, [place] % (Auto) 2.8, Eos % (Auto) 1.0, Baso % (Auto) 0.3, Neut # (Auto) 13.7 H, Lymph # (Auto) 1.3, [place] # (Auto) 0.4, Eos # (Auto) 0.2, Baso # (Auto) 0.1, Total Counted 100, Neutrophils % (Manual) 81 H, Lymphocytes % (Manual) 14, Monocytes % (Manual) 4, Eosinophils % (Manual) 1, Platelet Estimate Normal, RBC Morphology Normal 08/25/22 12:57: Sodium 142, Potassium 3.7, Chloride 105, Carbon Dioxide 31 H, Anion Gap 9.7, BUN 11, Creatinine 0.70, Estimated Creat Clear 85, Estimated GFR 100, Est GFR ( Amer) 121, Glucose 100, Calcium 8.9, Total Bilirubin 0.5, AST 26, ALT 16, Alkaline Phosphatase 71, Total Protein 7.6, Albumin 4.8, Globulin 2.8, Albumin/Globulin Ratio 1.7 08/25/22 12:57: C-Reactive Protein 1.1, Procalcitonin 0.046 08/25/22 17:51: Lactate 0.8 08/25/22 21:05: Random Gentamicin 4.9 08/26/22 05:29: Random Gentamicin 0.8 08/26/22 05:29: WBC 6.9 D, RBC 3.83 L, Hgb 11.7 L D, Hct 35.8 L, MCV 93.4, MCH 30.6, MCHC 32.8, RDW 13.3, Plt Count 213, MPV 8.5, Neut % (Auto) 73.0, Lymph % (Auto) 18.5, [place] % (Auto) 4.8, Eos % (Auto) 3.3, Baso % (Auto) 0.4, Neut # (Auto) 5.0, Lymph # (Auto) 1.3, [place] # (Auto) 0.3, Eos # (Auto) 0.2, Baso # (Auto) 0.0 08/26/22 05:29: Sodium 140, Potassium 4.1, Chloride 111 H, Carbon Dioxide 28, Anion Gap 5.1, BUN 10, Creatinine 0.70, Estimated Creat Clear 88, Estimated GFR 100, Est GFR ( Amer)
--- NOTE | 2022-08-26 11:11 | EXP.PHA.CONS ---
Pharmacy Consult Date: 08/26/22 Time: 11:12 Referring provider: DR. NORMAN Reason for Consult:: GENTAMICIN DOSE CHANGE Allergies Allergy/AdvReac Type Severity Reaction Status Date / Time banana Allergy Unknown ITCHING, Verified 08/25/22 12:39 SORES AROUND MOUTH hydromorphone [From Dilaudid] AdvReac Agitated Verified 08/25/22 12:39 Home Medications Medication Instructions Recorded Confirmed Type ondansetron 4 mg disintegrating 4 mg PO Q8H PRN nausea and 08/21/22 08/25/22 Rx tablet vomiting #10 tabs polyethylene glycol 3350 17 17 g PO DAILY constipation 08/25/22 08/25/22 History gram/dose oral powder (Miralax) trazodone 50 mg tablet 50 mg PO HS PRN Sleep 08/25/22 08/25/22 History New Prescriptions to Start Prescriptions: Height: 1.57 m Weight: 46.295 kg Laboratory Results:: Laboratory Results - last 24 hr 08/25/22 12:51: SARS-CoV-2 (PCR) Not detected, Influenza A Untype (PCR) Not detected, Influenza Type B (PCR) Not detected 08/25/22 12:57: WBC 15.6 H, RBC 4.60, Hgb 14.0, Hct 42.3, MCV 91.9, MCH 30.4, MCHC 33.0, RDW 13.0, Plt Count 276, MPV 8.7, Neut % (Auto) 87.8 H, Lymph % (Auto) 8.1 L, [place] % (Auto) 2.8, Eos % (Auto) 1.0, Baso % (Auto) 0.3, Neut # (Auto) 13.7 H, Lymph # (Auto) 1.3, [place] # (Auto) 0.4, Eos # (Auto) 0.2, Baso # (Auto) 0.1, Total Counted 100, Neutrophils % (Manual) 81 H, Lymphocytes % (Manual) 14, Monocytes % (Manual) 4, Eosinophils % (Manual) 1, Platelet Estimate Normal, RBC Morphology Normal 08/25/22 12:57: Sodium 142, Potassium 3.7, Chloride 105, Carbon Dioxide 31 H, Anion Gap 9.7, BUN 11, Creatinine 0.70, Estimated Creat Clear 85, Estimated GFR 100, Est GFR ( Amer) 121, Glucose 100, Calcium 8.9, Total Bilirubin 0.5, AST 26, ALT 16, Alkaline Phosphatase 71, Total Protein 7.6, Albumin 4.8, Globulin 2.8, Albumin/Globulin Ratio 1.7 08/25/22 12:57: C-Reactive Protein 1.1, Procalcitonin 0.046 08/25/22 17:51: Lactate 0.8 08/25/22 21:05: Random Gentamicin 4.9 08/26/22 05:29: Random Gentamicin 0.8 08/26/22 05:29: WBC 6.9 D, RBC 3.83 L, Hgb 11.7 L D, Hct 35.8 L, MCV 93.4, MCH 30.6, MCHC 32.8, RDW 13.3, Plt Count 213, MPV 8.5, Neut % (Auto) 73.0, Lymph % (Auto) 18.5, [place] % (Auto) 4.8, Eos % (Auto) 3.3, Baso % (Auto) 0.4, Neut # (Auto) 5.0, Lymph # (Auto) 1.3, [place] # (Auto) 0.3, Eos # (Auto) 0.2, Baso # (Auto) 0.0 08/26/22 05:29: Sodium 140, Potassium 4.1, Chloride 111 H, Carbon Dioxide 28, Anion Gap 5.1, BUN 10, Creatinine 0.70, Estimated Creat Clear 88, Estimated GFR 100, Est GFR ( Amer) 121, Glucose 93, Calcium 7.9 L Medical History: Medical History FANNIE III (cervical intraepithelial neoplasia III) History of anxiety History of depression History of irritable bowel syndrome Loss of teeth due to extraction Pelvic pain in female Presence of 52 mg levonorgestrel-releasing intrauterine device (IUD) Assessment and Plan Assessment and plan all Dx Assessment and Plan for all problems:: Pharmacokinetic dosing service Age: 27 yo Serum creatinine: 0.7 mg/dL Height: 61.8 Inches Weight (kg): 46 Assessment: IBW (kg): 49.64 Dosing wt(kg): 46.0 Estimated Creatinine clearance (ml/min): 87.7 CRCL method: Cockcroft and Gault using ibw(default). Drug selected: Gentamicin Loading dose (mg): 0 Vd (liters): 13.8 (factor used: 0.3 L/kg) Watson (hr-1): 0.381 Half life (hrs): 1.82 Recommended dose: 280 mg Interval: 24 hrs Infusion time (hrs): 1 Predicted peak (mcg/mL): 16.9 Predicted trough (mcg/mL): 0.00 Recommendations: Give Gentamicin 280 mg q 24 hrs with an expected Cpeak of 16.9 mcg/ml and an expected Ctrough of 0.00 mcg/ml
--- NOTE | 2022-08-26 11:26 | PC.NURSE ---
Dr. Ruiz and Dr. Lucero notified of blood cx results.
--- NOTE | 2022-08-26 11:31 | EXP.ACUTE.PN ---
Subjective *Date: 08/26/22 *Time: 13:46 Interval history: Patient appears stable today. On room air, tolerating p.o. intake. Afebrile for 24 hours. Mild nausea nausea but no vomiting or diarrhea. Denies any chest pain or shortness of breath. States she is feeling better today. Labs show improvement, discussed case/results/and plan with patient. Medical Exam Vital signs and Labs for Last 24 Hours: Vital Signs Temp Pulse Resp BP Pulse Ox 08/26/22 08:00 98 F 104 H 18 116/69 98 08/26/22 04:00 97.9 F 87 18 95/53 L 98 08/25/22 23:56 97.7 F 72 16 100/60 L 100 08/25/22 20:00 98.3 F 67 17 115/79 98 08/25/22 16:00 98.9 F 81 16 102/72 L 99 08/25/22 13:21 80 98 08/25/22 12:34 98.2 F 80 17 113/72 98 Intake and Output 08/25/22 08/26/22 08/26/22 23:59 07:59 15:59 Intake Total 120 / 360 2929 / 2929 Output Total 0 / 0 500 / 500 0 / 500 Balance 120 / 360 2429 / 2429 0 / 2429 Intake: Intake, Oral Amount 120 / 360 240 / 240 Intake, Total IV Amount 2689 / 2689 0.9 % Sodium Chloride 1,000 ml 2439 / 2439 @ 125 mls/hr IV .Q8H [facility] Rx#: [id number] Ampicillin Sodium 2 gm In 0.9 % 200 / 200 Sodium Chloride 100 ml @ 200 mls/hr IV Q6H [facility] Rx#:[id number] Clindamycin Phosphate/D5w 900 50 / 50 mg In 50 ml @ 100 mls/hr IV Q8H [facility] Rx#:[id number] Output: Output, Urine Amount 0 / 0 500 / 500 0 / 500 Other: Number of Voids 1 Number of Unmeasured Voids 1 0 2 Weight 46.295 kg 46.295 kg Patient Weight 08/26/22 23:59 Weight 46.295 kg Laboratory Results - last 24 hr 08/25/22 12:51: SARS-CoV-2 (PCR) Not detected, Influenza A Untype (PCR) Not detected, Influenza Type B (PCR) Not detected 08/25/22 12:57: WBC 15.6 H, RBC 4.60, Hgb 14.0, Hct 42.3, MCV 91.9, MCH 30.4, MCHC 33.0, RDW 13.0, Plt Count 276, MPV 8.7, Neut % (Auto) 87.8 H, Lymph % (Auto) 8.1 L, [place] % (Auto) 2.8, Eos % (Auto) 1.0, Baso % (Auto) 0.3, Neut # (Auto) 13.7 H, Lymph # (Auto) 1.3, [place] # (Auto) 0.4, Eos # (Auto) 0.2, Baso # (Auto) 0.1, Total Counted 100, Neutrophils % (Manual) 81 H, Lymphocytes % (Manual) 14, Monocytes % (Manual) 4, Eosinophils % (Manual) 1, Platelet Estimate Normal, RBC Morphology Normal 08/25/22 12:57: Sodium 142, Potassium 3.7, Chloride 105, Carbon Dioxide 31 H, Anion Gap 9.7, BUN 11, Creatinine 0.70, Estimated Creat Clear 85, Estimated GFR 100, Est GFR ( Amer) 121, Glucose 100, Calcium 8.9, Total Bilirubin 0.5, AST 26, ALT 16, Alkaline Phosphatase 71, Total Protein 7.6, Albumin 4.8, Globulin 2.8, Albumin/Globulin Ratio 1.7 08/25/22 12:57: C-Reactive Protein 1.1, Procalcitonin 0.046 08/25/22 17:51: Lactate 0.8 08/25/22 21:05: Random Gentamicin 4.9 08/26/22 05:29: Random Gentamicin 0.8 08/26/22 05:29: WBC 6.9 D, RBC 3.83 L, Hgb 11.7 L D, Hct 35.8 L, MCV 93.4, MCH 30.6, MCHC 32.8, RDW 13.3, Plt Count 213, MPV 8.5, Neut % (Auto) 73.0, Lymph % (Auto) 18.5, [place] % (Auto) 4.8, Eos % (Auto) 3.3, Baso % (Auto) 0.4, Neut # (Auto) 5.0, Lymph # (Auto) 1.3, [place] # (Auto) 0.3, Eos # (Auto) 0.2, Baso # (Auto) 0.0 08/26/22 05:29: Sodium 140, Potassium 4.1, Chloride 111 H, Carbon Dioxide 28, Anion Gap 5.1, BUN 10, Creatinine 0.70, Estimated Creat Clear 88, Estimated GFR 100, Est GFR ( Amer) 121, Glucose 93, Calcium 7.9 L I & O for Labs for Last 24 Hours: Intake & Output 08/23/22 08/24/22 08/25/22 08/26/22 23:59 23:59 23:59 23:59 Intake Total 120 / 360 2929 / 2929 Output Total 0 / 0 500 / 500 Balance 120 / 360 2429 / 2429 Weight 44.452 kg 46.295 kg Microbiology Reports for the Last 24 Hours: Microbiology 08/25/22 13:35 Blood Blood Culture - Preliminary 08/25/22 12:57 Blood Blood Culture - Preliminary 08/25/22 17:11 Vaginal Gram Stain - Final 08/25/22 17:11 Vaginal Wound Culture - Preliminary Gram Negative Rods 08/25/22 17:11 Urine,Clean Catch Urine Culture - Preliminary
[2022-08-26 14:00] VITALS: BP 126/70; PULSE 83; RESP 19; TEMP 36.5; O2SAT 99
--- NOTE | 2022-08-26 15:04 | EXP.DC.SUM ---
General Admission date:: 08/25/22 HPI HPI HPI: This is a 27-year-old female that presents to her data conversion operator office for concerns of subjective fever, chills, pelvic pain and back pain over several days with recent ED evaluation on August 21, 2022. Her past medical history is significant for cervical dysplasia, mood disorder, kidney stones and recent laparoscopic gynecological procedure (08/18/2022). She reports undergoing gynecological surgical procedure on August 18 (Salpingectomy, Endometrial ablation and LEEP). She reports not feeling well at home so she presented to the ED on August 21, 2022 for evaluation. Her ED concerns included nausea general malaise and pelvic pain. A CT scan of the abdomen and pelvis at that time identified concerns with bladder wall thickening, nonobstructing bilateral kidney stones with no associated hydronephrosis. Her lab evaluation during that ED visit identified a leukocytoses with preserved electrolytes, renal function and hemoglobin. She kept her follow-up appoint with her data conversion operator as instructed and reported to her data conversion operator subjective fever, chills ongoing pelvic discomfort and her in office vitals identified tachycardia with temperature 99.3. Her data conversion operator appropriately diagnosed her with sepsis and admitted the patient for IV fluids and IV antibiotic therapy. Her current labs continue to identify a leukocytoses. We have added inflammatory markers to include procalcitonin and lactic acid. I suspect the etiology of her sepsis will be a urinary source with identified kidney stones and recent pelvic procedure. She was started on broad spectrum antbiotics while cultures were pending. Repeat CT abd/pelvis did not show any concerns. Hospital Course Hospital Course Hospital Course: Positive blood cultures (E. Coli) and urine culture (gram negative rods, likely E. Coli) Antibiotics changed from amp/gent/clinda to Levaquin and Flagyl, per organism susceptibility She was cleared for discharge to complete 14 days of Levaquin and 7 days of flagyl She will f/u with MEASUREMENT TECHNICIAN next week and was given precautions to return to hospital for any new/worsening symptoms Exam Data for Last 24 hours Vital signs and Labs for Last 24 Hours: Temp Pulse Resp BP Pulse Ox 97.7 F 83 19 126/70 99 08/26/22 14:00 08/26/22 14:00 08/26/22 14:00 08/26/22 14:00 08/26/22 14:00 Laboratory Results - last 24 hr 08/25/22 12:57: C-Reactive Protein 1.1, Procalcitonin 0.046 08/25/22 17:51: Lactate 0.8 08/25/22 21:05: Random Gentamicin 4.9 08/26/22 05:29: Random Gentamicin 0.8 08/26/22 05:29: WBC 6.9 D, RBC 3.83 L, Hgb 11.7 L D, Hct 35.8 L, MCV 93.4, MCH 30.6, MCHC 32.8, RDW 13.3, Plt Count 213, MPV 8.5, Neut % (Auto) 73.0, Lymph % (Auto) 18.5, [place] % (Auto) 4.8, Eos % (Auto) 3.3, Baso % (Auto) 0.4, Neut # (Auto) 5.0, Lymph # (Auto) 1.3, [place] # (Auto) 0.3, Eos # (Auto) 0.2, Baso # (Auto) 0.0 08/26/22 05:29: Sodium 140, Potassium 4.1, Chloride 111 H, Carbon Dioxide 28, Anion Gap 5.1, BUN 10, Creatinine 0.70, Estimated Creat Clear 88, Estimated GFR 100, Est GFR ( Amer) 121, Glucose 93, Calcium 7.9 L I & O for Last 24 hours: Intake & Output 08/24/22 08/25/22 08/26/22 08/27/22 11:59 11:59 11:59 11:59 Intake Total 3049 / 3049 120 / 120 Output Total 500 / 500 Balance 2549 / 2549 120 / 120 Weight 102 lb 1 oz Microbiology Reports for the Last 24 Hours: Microbiology 08/25/22 13:35 Blood Blood Culture - Preliminary 08/25/22 12:57 Blood Blood Culture - Preliminary 08/25/22 17:11 Vaginal Gram Stain - Final 08/25/22 17:11 Vaginal Wound Culture - Preliminary Gram Negative Rods 08/25/22 17:11 Urine,Clean Catch Urine Culture - Preliminary Gram Negative Rods Constitutional Constitutional: no acute distress *Routine HEENT Exam Head: Present normocephalic Eye: Absent conjunctival icterus or scleral injection ENT: Present
--- NOTE | 2022-08-26 15:52 | HMH.PHAINT1 ---
Pharmacy Intervention Comments: DISCHARGE MEDICATION COUNSELING PROVIDED. DISCUSSED THE FOLLOWING NEW PRESCRIPTIONS: -NORCO (FOR MODERATE TO SEVERE PAIN, ONE TO TWO TABS EVERY 4 HOURS NEEDED, IF NOT IN PAIN DON'T HAVE TO TAKE, MAY CAUSE N/V, CONSTIPATION, SEDATION) -IBUPROFEN (FOR MILD PAIN, EVERY 6 HOURS NEEDED FOR PAIN) -LEVAQUIN (ANTIBIOTIC, DAILY, ALREADY HAD TODAY'S DOSE, N/V/D, RARE RISK OF TENDON RUPTURE, CAN TAKE WITH FOOD) -FLAGYL (ANTIBIOTIC, TWICE DAILY, HAD A DOSE THIS MORNING, NO ALCOHOL OR ALCOHOL CONTAINING PRODUCTS WHILE TAKING) PATIENT VERBALIZED NO QUESTIONS AT THIS TIME.
--- NOTE | 2022-08-27 13:28 | CARE MANAGER ---
Spoke with patient for post-discharge phone interview, no issues noted.
== END 2022-08-26 15:50 | disposition home or self-care (01) | DRG 872 ==
PROVIDERS: Family Medicine; Admitting Provider Obstetrics & Gynecology; PCP Obstetrics & Gynecology; Visit Provider Obstetrics & Gynecology
DX: A41.9 Sepsis, unspecified organism (principal); N39.0 Urinary tract infection, site not specified; B96.20 Unspecified Escherichia coli [E. coli] as the cause of diseases classified elsewhere; F41.9 Anxiety disorder, unspecified; F17.210 Nicotine dependence, cigarettes, uncomplicated; Z71.6 Tobacco abuse counseling
CPT/HCPCS: 36415; 74178; 80048; 80053; 80170; 83605; 84145; 85007; 85025; 86140; 87040; 87070; 87077; 87086; 87088; 87186; 87205; C9803; J0290; J2405; Q9967; U0003; U0005

== ENCOUNTER → 2022-08-25 23:44 | Outpatient (CLI) | payer MEDICAID, SELFPAY | PROVIDERS: PCP Emergency Medicine; Visit Provider Obstetrics & Gynecology | DX: R50.9 Fever, unspecified (principal) ==

== ENCOUNTER → 2022-11-24 15:55 | Outpatient (CLI) | payer MEDICAID, SELFPAY ==
[2022-11-24 18:41] LABS: Iron 80 ug/dL (37-170)
[2022-11-24 18:42] LABS: Basophils % 0.6 % (0.1-2.0); Eosinophils # 0.1 K/mm3 (0.0-0.4); Eosinophils % 1.5 % (0.1-12.0); Hematocrit 42.7 % (37.0-47.0); Hemoglobin 14.3 g/dL (12.2-16.2); Lymphocytes # 1.7 K/mm3 (0.7-4.5); Lymphocytes % 30.5 % (10-50); Mean Corpuscular HGB Conc 33.5 g/dL (31.8-35.4); Mean Corpuscular Volume 89.6 fl (81-99); Mean Platelet Volume 9.6 fl (7.4-10.4); Monocytes # 0.5 K/mm3 (0.1-1.0); Monocytes % 8.8 % (1.7-9.3); Neutrophils # 3.2 K/mm3 (1.8-7.8); Neutrophils % 58.7 % (37.0-80.0); Platelet Count 153 K/mm3 (142-424); Red Blood Count 4.76 M/mm3 (4.20-5.40); Red Cell Distribution Width 12.8 % (11.5-17.5); White Blood Count 5.5 K/mm3 (4.8-10.8)
[2022-11-24 18:43] LABS: Alanine Aminotransferase 16 U/L (12-78); Albumin Level 4.1 g/dl (3.5-5.0); Albumin/Globulin Ratio 1.7 (1.1-1.8); Alkaline Phosphatase 72 U/L (38-126); Amylase 59 U/L (30-110); Anion Gap 17.7 mEq/L (5-15); Aspartate Amino Transferase 25 U/L (14-36); Bilirubin,Total 0.7 mg/dl (0.2-1.3); Blood Urea Nitrogen 12 mg/dl (7-17); Calcium 8.7 mg/dl (8.4-10.2); Carbon Dioxide 27 mmol/L (22.0-30.0); Chloride 95 mmol/L (98-107); Estimated Glomerular Filt Rate 100 ml/min (>60); GFR (African American) 121 ML/MIN (>60); Globulin 2.4 g/dL (1.3-3.2); Glucose 96 mg/dl (74-100); Lipase 69 U/L (23-300); Potassium 3.7 mmoL/L (3.5-5.1); Sodium 136 mmol/L (136-145); Total Protein,Serum 6.5 g/dl (6.3-8.2)
[2022-11-24 18:51] LABS: Total Iron Binding Capacity 184 ug/dL (265-497)
[2022-11-24 19:17] LABS: Ferritin 100 ng/ml (6.24-137)
[2022-11-24 19:33] LABS: Vitamin B12 190 pg/mL (239-931)
[2022-11-26 15:24] LABS: Tissue Transglutaminase IgA Ab <2 U/mL (0-3); Tissue Transglutaminase IgG Ab 3 U/mL (0-5)
== END ==
LOC: LAB.DROPOF 11-25 06:49
PROVIDERS: PCP Student in an Organized Health Care Education/Training Program; Visit Provider Student in an Organized Health Care Education/Training Program
DX: R10.9 Unspecified abdominal pain (principal); R11.2 Nausea with vomiting, unspecified; R53.83 Other fatigue; K58.9 Irritable bowel syndrome, unspecified
CPT/HCPCS: 80053; 82150; 82607; 82728; 83516; 83540; 83550; 83690; 85025; 87086

== ENCOUNTER → 2022-12-24 13:10 | Outpatient (CLI) | payer MEDICAID, SELFPAY ==
[2022-12-24 20:44] LABS: Vitamin B12 209 pg/mL (239-931)
[2022-12-26 14:22] LABS: Homocyst(e)ine 11.1 umol/L (0.0-14.5)
[2023-01-31 00:19] LABS: Methylmalonic Acid 339 nmol/L (0-378)
== END ==
LOC: LAB.DROPOF 12-25 07:13
PROVIDERS: Student in an Organized Health Care Education/Training Program; PCP Nurse Practitioner Family; Visit Provider Nurse Practitioner Family
DX: N39.0 Urinary tract infection, site not specified (principal); E53.8 Deficiency of other specified B group vitamins; B96.29 Other Escherichia coli [E. coli] as the cause of diseases classified elsewhere
CPT/HCPCS: 82607; 82746; 83090; 83921; 87086; 87088; 87186

== ENCOUNTER → 2023-07-09 13:41 | Outpatient (CLI) | payer MEDICAID, SELFPAY ==
--- NOTE | 2023-07-09 13:50 | US_ITS ---
PROCEDURE: US TRANSVAGINAL CLINICAL INDICATION: pelvic pain COMPARISON: No exams were available for comparison FINDINGS: Transvaginal sonographic images of the pelvis were obtained. UTERUS: 5.5 cm x 4.4 cmx 4.4cm retroverted and retroflexed with a combined endometrial thickness of 9mm. Endometrium appears to have post ablation changes. 3 mm nabothian cyst in the cervix. LEFT OVARY: Surgically absent RIGHT OVARY: 3.5 cmx 3.5 cmx1.8 cm with a volume of 11.4ml. Multiple small peripheral follicles are seen. Corpus luteum measuring 1.7 cm x 1.3 cm x 1.7 cm. Doppler flow to right ovary is seen. There is a small amount of fluid in the cul-de-sac. IMPRESSION: 1. Retroverted retroflexed uterus, normal in shape and size. Post ablation changes are seen in the endometrium 2. The left ovary has been surgically removed. 3. The right ovary has a corpus luteum and several peripheral for small follicles. 4. There is a small amount of fluid in the cul-de-sac. Dictated by: Alex Abreu MD 07/09/2023 17:29 Alex Abreu MD in [facility] 07/09/2023 17:29
== END ==
PROVIDERS: PCP Nurse Practitioner Family; Visit Provider Obstetrics & Gynecology
DX: N95.1 Menopausal and female climacteric states (principal); R10.2 Pelvic and perineal pain
CPT/HCPCS: 76830

== ENCOUNTER 2023-09-24 22:31 | Outpatient (CLI) | payer MEDICAID, SELFPAY | END 2023-09-24 23:59 | LOC: LAB.DROPOF 22:31 | PROVIDERS: PCP Student in an Organized Health Care Education/Training Program; Visit Provider Student in an Organized Health Care Education/Training Program | DX: R31.9 Hematuria, unspecified (principal); A02.9 Salmonella infection, unspecified | CPT/HCPCS: 87086 ==

== ENCOUNTER 2024-04-22 10:44 | Outpatient (CLI) | payer MEDICAID, SELFPAY ==
[2024-04-22 12:42] LABS: Basophils % 0.5 % (0.1-2.0); Eosinophils % 0.3 % (0.1-12.0); Hematocrit 44.9 % (37.0-47.0); Hemoglobin 14.7 g/dL (12.2-16.2); Lymphocytes # 1.8 K/mm3 (0.7-4.5); Lymphocytes % 21.5 % (10-50); Mean Corpuscular HGB Conc 32.7 g/dL (31.8-35.4); Mean Corpuscular Volume 97.9 fl (81-99); Mean Platelet Volume 8.2 fl (7.4-10.4); Monocytes # 0.4 K/mm3 (0.1-1.0); Monocytes % 5.3 % (1.7-9.3); Neutrophils # 5.9 K/mm3 (1.8-7.8); Neutrophils % 72.4 % (37.0-80.0); Platelet Count 266 K/mm3 (142-424); Red Blood Count 4.58 M/mm3 (4.20-5.40); Red Cell Distribution Width 13.3 % (11.5-17.5); White Blood Count 8.2 K/mm3 (4.8-10.8)
[2024-04-22 14:11] LABS: Alanine Aminotransferase 15 U/L (12-78); Albumin Level 4.5 g/dl (3.5-5.0); Albumin/Globulin Ratio 2.1 (1.1-1.8); Alkaline Phosphatase 54 U/L (38-126); Anion Gap 6.2 mEq/L (5-15); Aspartate Amino Transferase 22 U/L (14-36); Bilirubin,Total 0.7 mg/dl (0.2-1.3); Blood Urea Nitrogen 11 mg/dl (7-17); Calcium 9.5 mg/dl (8.4-10.2); Carbon Dioxide 30 mmol/L (22.0-30.0); Chloride 105 mmol/L (98-107); Chol/HDL Ratio 3.7 (1-3.5); Cholesterol 165 mg/dl (140-200); Estimated Glomerular Filt Rate 85 ml/min (>60); GFR (African American) 103 ML/MIN (>60); Globulin 2.1 g/dL (1.3-3.2); Glucose 91 mg/dl (74-100); HDL Cholesterol 45 mg/dl (40-60); Potassium 4.2 mmoL/L (3.5-5.1); Sodium 137 mmol/L (136-145); Total Protein,Serum 6.6 g/dl (6.3-8.2); Triglycerides 62 mg/dl (30-150); VLDL Cholesterol 12 mg/dL (0-40)
[2024-04-22 14:22] LABS: Direct LDL Cholesterol 97.41 mg/dL (100-129)
[2024-04-22 15:30] LABS: Folate 7.09 ng/mL
[2024-04-22 15:43] LABS: Thyroid Stimulating Hormone 0.57 uIU/mL (0.465-4.68)
[2024-04-22 15:47] LABS: Ferritin 124 ng/ml (6.24-137)
[2024-04-22 15:53] LABS: 25-OH Vitamin D, Total 51.2 ng/mL (30-100)
[2024-04-22 15:57] LABS: HIV (1&2) Antibody Rapid NONREACTIVE (NONREACTIVE)
[2024-04-22 16:32] LABS: Vitamin B12 222 pg/mL (239-931)
[2024-04-23 05:15] LABS: HCV Ab Non Reactive (Non Reactive)
[2024-04-23 10:12] LABS: Homocyst(e)ine 15.3 umol/L (0.0-14.5)
[2024-04-23 14:39] LABS: H. pylori Breath Test Negative (Negative)
[2024-04-26 21:08] LABS: QuantiFERON-TB Gold Plus Negative (Negative)
[2024-04-27 10:14] LABS: Methylmalonic Acid 278 nmol/L (0-378)
== END 2024-04-22 23:59 | disposition home or self-care (01) ==
LOC: LAB 10:47 → RT 10:49
PROVIDERS: PCP Student in an Organized Health Care Education/Training Program; Visit Provider Student in an Organized Health Care Education/Training Program
DX: R00.2 Palpitations (principal); E53.8 Deficiency of other specified B group vitamins; R11.0 Nausea; R63.4 Abnormal weight loss; Z68.1 Body mass index [BMI] 19.9 or less, adult; R53.83 Other fatigue; F41.9 Anxiety disorder, unspecified; D64.9 Anemia, unspecified; R05.9 Cough, unspecified; Z13.1 Encounter for screening for diabetes mellitus; Z11.4 Encounter for screening for human immunodeficiency virus [HIV]; Z13.21 Encounter for screening for nutritional disorder; Z13.220 Encounter for screening for lipoid disorders; Z13.29 Encounter for screening for other suspected endocrine disorder; Z11.59 Encounter for screening for other viral diseases
CPT/HCPCS: 36415; 80050; 80053; 80061; 82306; 82607; 82728; 82746; 83013; 83036; 83090; 83921; 84443; 85025; 86340; 86480; 86803; 87389; 93225; 93227

== ENCOUNTER 2024-06-20 09:50 | Outpatient (CLI) | payer MEDICAID, SELFPAY ==
--- NOTE | 2024-06-20 09:50 | NM_ITS ---
FINAL REPORT TECHNIQUE: Sequential anterior images were obtained after the ingestion of 2 whole eggs, toast with butter, and 6 ounces of water radiolabeled with 0.55 mCi technetium 99M sulfur colloid. CLINICAL HISTORY: N/V/weight loss 10:00 am .55 uci sulfur colloid injected into 2 whoole eggs...toast with butter..6 oz cup of water FINDINGS: GASTRIC EMPTYING SCAN Static images show normal emptying of the stomach into the small bowel. Based on the time activity curve, the estimated half-emptying time is 120 minutes. IMPRESSION: Abnormally prolonged gastric emptying study. Reviewed, Interpreted and Dictated by Collin Art III, MD Transcribed by Erna Ayoub Authenticated and [facility]
[2024-06-20] MEDS: TC99M SULF.COLLOID;1 DOSE (UP TO 20 MCI) IV (10:56)
== END 2024-06-20 23:59 | disposition home or self-care (01) ==
LOC: RAD 09:50
PROVIDERS: PCP Student in an Organized Health Care Education/Training Program; Visit Provider Nurse Practitioner Family
DX: R11.2 Nausea with vomiting, unspecified (principal); R14.0 Abdominal distension (gaseous); R63.4 Abnormal weight loss; Z68.1 Body mass index [BMI] 19.9 or less, adult
CPT/HCPCS: 78264; A9541

== ENCOUNTER 2024-06-28 15:00 | Outpatient (CLI) | payer MEDICAID, SELFPAY ==
[2024-06-28 15:45] VITALS: BMI 19.3
== END 2024-06-28 23:59 | disposition home or self-care (01) ==
LOC: DIETICIAN 15:01
PROVIDERS: PCP Student in an Organized Health Care Education/Training Program; Visit Provider Nurse Practitioner Family
DX: K31.84 Gastroparesis (principal)
CPT/HCPCS: 97802